=== PATIENT | female | born 1970 | race African-American/Black ===

== ENCOUNTER → 2018-10-04 | Outpatient (CLI) | payer OTHER ==
[2015-07-30 19:57] VITALS: BP 134/80
[~2018-10-04] MED LIST: ACET325T9 PO; CYCL10TA2 PO; HYDR-2765 PO; IBUP-1060 PO; IOHEXOL 180 MG/ML 10 ML VIAL. ONE; MULT1TAB52 PO; SENN1TAB71 PO; TRAM-48 PO; methylPREDNISolone ACETATE 40 MG/ML VIAL. ONE; methylPREDNISolone ACETATE 80 MG/ML VIAL. ONE
--- NOTE | 2018-10-05 15:23 | PAIN ---
DATE OF SERVICE: 10/04/2018 INITIAL CONSULTATION FOR PAIN CLINIC CHIEF COMPLAINT: Neck and right upper extremity pain. HISTORY OF PRESENT ILLNESS: This is a 48-year-old female who presents with history of pain base of neck and right shoulder and upper extremity since about one month ago. The patient reports no specific injury or action that she is aware of. The pain came up over time, has been getting worse. Since the pain began, the patient reports it is radiating to the right hand with numbness and tingling in the thumb and first finger, becoming more constant and numb. She has been having difficulty with dropping items. Fine motor movements such as buttoning a button on a garment, also picking up small objects and lifting items, repetitive motion with the right hand, even raising her hand up above her head is becoming more tender and difficult with the shoulder and arm as well as reaching posteriorly while she is putting on sleeve of a shirt or jacket. The patient reports the pain is constant, sharp, shooting, now radiating with numbness and tingling in the hand, burning and aching as well in the base of the neck. The patient reports it awakens her from sleep about 3-4 times a night, does not affect her bowel or bladder control or ability to walk. She has had physical therapy, also chiropractic treatments and does exercise currently with stretching as well without significant improvement. The patient is taking Flexeril, Ultram, hydrocodone, ibuprofen. Flexeril is the only one that helped her significantly. The others helped only very minimally. The patient did have MRI scan of the cervical spine showing multilevel disk degenerative change and spondylosis, degenerative changes most pronounced at C5-C6 level with probable small left paracentral disk herniation versus disk osteophyte complex at that level. The patient reports her disability rating from 0-10, 10 being the worst, is a 7 with family and home responsibilities, social activities, sexual behavior, self-care; 9 with recreation and occupation; and 6 with life support activities. The patient reports no symptoms in the left upper extremity, but significant fatigability with the right arm with any repetitive motions or any activity at all. PAST MEDICAL HISTORY: Significant for hearing loss in the left ear, history of seizures with a shunt placed at age 22. PREVIOUS SURGERY: Include x 4, [employer] shunt and left bunionectomy, also breast augmentation in 2009. CURRENT MEDICATIONS: Include multivitamins, stool softener, hydrocodone, Tylenol, ibuprofen, tramadol, and cyclobenzaprine. ALLERGIES: THE PATIENT IS ALLERGIC TO COCONUT, WHICH CAUSES HIVE. No medical allergies known. FAMILY HISTORY: Significant for no major medical problems or conditions that she is aware of. SOCIAL HISTORY: The patient does not smoke, drinks alcohol about 1 glass of wine twice a month on average. Does not use any illegal, illicit or recreational drugs. She is , lives with her spouse, has 3 children living at home and lives locally in [place]. REVIEW OF SYSTEMS: The patient's review of systems is positive for those items mentioned in history of present illness. All systems reviewed and otherwise negative. It is complete, full and well documented on the patient's chart. PHYSICAL EXAMINATION: VITAL SIGNS: Today, the patient's blood pressure is 131/84, pulse 85, respirations 16, temperature 97.8 degrees Fahrenheit, height is 5 feet 6-1/2 inches and weight is 139 pounds. GENERAL: The patient is awake, alert, oriented, appropriate, very pleasant demeanor. HEENT: Shows normocephalic, atraumatic. Extraocular movements are intact and symmetrical. Oral cavity: Mucous membranes moist and pink. Dentition is intact. NECK: Anterior throat supple without palpable lymphadenopathy noted. Swallow reflex is symmetrical. CHEST: Shows normal on inspection. Breath sounds are clear to auscultation bilaterally. HEART: Shows S1, S2 clear. No murmurs auscultated. ABDOMEN: Soft, nontender, nondistended. No palpable organomegaly is noted. No rebound or guarding demonstrated. BACK: Shows spine grossly in the midline. Normal appearing thoracic kyphosis and lumbar lordotic curvature. Cervical paraspinous musculature shows symmetrical on inspection. With palpation shows some moderate tenderness even with light to moderate palpation in the middle and lower distribution of the paraspinous muscles, more on the right than the left, but without atrophy or hypertrophy. No trigger points, no radiation of pain. The patient shows good rotational motion, somewhat guarded with far lateral rotation greater than 45 degrees to the right, but without difficulty to the left. Extension and flexion performed fully without significant pain reported. EXTREMITIES: The patient's upper extremities show deep tendon reflexes at 2+ in the biceps and triceps tendons. Motor exam is approximately 4 on a scale of 5 on the right and 5/5 on the left with bicep and tricep flexion as well as service captain strength. Peripheral pulses are 2+ radial distribution. No peripheral edema is noted bilaterally. Upper extremities are warm and dry to touch, equal in color and appearance. Shoulder shrug is strong and intact without loss of strength on resistance as is abduction of shoulder at 90 degrees without loss of strength, but with significant pain in the base of the neck and right shoulder into the trapezius with both these maneuvers on the right only. SKIN: Shows warm and dry, good turgor. No edema. No sores, rashes or bruising throughout. IMPRESSION: This is a 48-year-old female with: 1. Approximately 1 month history of pain in the base of the neck, right upper extremity in a radicular fashion. 2. MRI scan of cervical spine as noted. 3. History of seizures with [employer] shunt in the past. PLAN: Options were discussed with the patient including conservative medical management, physical therapy, interventional techniques and she would like to pursue interventional techniques as she is doing physical therapies already and exercises stretching on her own. We discussed a cervical epidural steroid injection using description as well as anatomical models to describe the procedure. Risks were then discussed including, but not limited to bleeding, infection, possibility of epidural hematoma, subsequent neurological compromise, dural puncture, headaches, spinal cord and/or nerve damage, side effects of steroid medication and poor results regarding pain control. The patient understands and wished to proceed. The patient will return to the clinic in approximately 2 weeks for followup, was counseled on return appointment, activity level and side effects to be aware of. DIAGNOSES: Cervical radiculopathy with cervical degenerative disk disease, cervical spinal stenosis and herniated disk. PROCEDURE: Cervical epidural steroid injection, translaminar approach C5-C6 level using C-arm fluoroscopic guidance under sterile prep and drape using local anesthetic. MEDICATION INJECTED: A total of 120 mg Depo-Medrol plus 5 mL of preservative-free normal saline and 2 mL of Isovue for contrast. CONDITION AT DISCHARGE: Stable. The patient tolerated the procedure well, had no complications. GER LUI MD DR: HARSHAL/deirdre JOB#: [id number] / [id number] LONNIE Velasquez MD
== END | disposition home or self-care (01) ==
LOC: PNCL 09:58
PROVIDERS: ATTEND Anesthesiology
DX: M50.122 Cervical disc disorder at C5-C6 level with radiculopathy (principal); M48.02 Spinal stenosis, cervical region; H91.92 Unspecified hearing loss, left ear; Z98.890 Other specified postprocedural states; Z79.899 Other long term (current) drug therapy; Z91.018 Allergy to other foods; Z72.89 Other problems related to lifestyle
CPT/HCPCS: 62321; J1030; J1040; Q9965

== ENCOUNTER → 2018-10-18 | Outpatient (CLI) | payer OTHER ==
[2015-07-30 19:57] VITALS: BP 134/80
[~2018-10-18] MED LIST changes: -IOHEXOL 180 MG/ML 10 ML VIAL. ONE; -methylPREDNISolone ACETATE 40 MG/ML VIAL. ONE; -methylPREDNISolone ACETATE 80 MG/ML VIAL. ONE
--- NOTE | 2018-10-19 02:03 | PAIN ---
DATE OF SERVICE: 10/18/2018 PROGRESS NOTE FOR PAIN CLINIC DIAGNOSES: Cervical radiculopathy with cervical degenerative disk disease, cervical spinal stenosis and cervical herniated disk. HISTORY OF PRESENT ILLNESS: The patient is a 48-year-old female who returns for followup status post cervical epidural steroid injection x 1. The patient reports about 75% initially over the first 2 weeks, now down to about 50% overall improved, with pain in the neck and right upper extremity. The patient reports he has been increasing activity with greater ease and comfort, working better with using a computer with much greater ease as well. The patient reports still some significant pain which is returning now over the past several days in the base of the neck and the right arm, into the posterior deltoid, posterior upper arm, elbow, having some numbness and tingling in the hand and the right forearm, especially the index finger on the right hand. The patient reports that his pain in the neck and the arm is sharp, tingling, burning, cramping at times, on and off in intensity. Generally, it does not awaken her from sleep, but does occasionally. The patient reports she was increasing her activity at work, especially in household activities and sleeping better, but it took about 2 days for the pain to decrease, but then it was decreasing significantly. The patient reports no new motor or sensory deficits, no new changes. Again, still some pain radiating to the right upper extremity as it was previously, but again significantly improved. PHYSICAL EXAMINATION: VITAL SIGNS: The patient's blood pressure 134/90, pulse 96, respirations 20 and temperature 98.1 degrees Fahrenheit. Height is 5 feet 6-1/2 inches and weight is 143 pounds. GENERAL: The patient is awake, alert, oriented and appropriate. She has a very pleasant demeanor. HEENT EXAMINATION: Shows normocephalic, atraumatic. Extraocular muscles are intact and symmetrical. Oral cavity, mucous membranes are moist and pink. Dentition is intact. NECK: Shows anterior throat supple, without palpable lymphadenopathy noted. Swallow reflex is symmetrical. CHEST: Shows normal on inspection. Breath sounds are clear to auscultation bilaterally. HEART: Shows S1, S2 clear. No murmurs auscultated. ABDOMEN: Soft, nontender and nondistended. No palpable organomegaly is noted. No rebound or guarding demonstrated. BACK: Shows spine grossly in the midline. Normal-appearing cervical lordotic curvature and thoracic kyphotic curvature. Cervical paraspinous muscle shows symmetrical on inspection. On palpation, there is some moderate tenderness, more in the right than the left in the inferior cervical paraspinous musculature as well as the superior medial and lateral trapezius, but without specific trigger points or radiation of pain. The patient has good rotational motion of the cervical spine, both laterally, greater than 45 degrees, closer to 90 degrees as well as full extension, full forward flexion without significant increase in pain. EXTREMITIES: The patient's upper extremities show deep tendon reflexes 2+ in the biceps and triceps tendons. Motor exam is approximately 4 on a scale of 5 with right ramp supervisor strength and 5/5 on the left. Bicep and tricep flexion is 5/5 and equal bilaterally. Peripheral pulses are 2+ radial distribution. No peripheral edema is noted. Shoulder shrug is strong and intact, without loss of strength on resistance bilaterally. Options were discussed with the patient. The patient's old chart was reviewed as was her current medication regimen updated. Current review of systems updated today as well. We will preauthorize the patient for a second cervical epidural steroid injection as she did very well with the first injection, still with radicular pain returning in the C5-C6 dermatomal distribution on the right. We will plan on C5-C6 translaminar cervical epidural steroid injection on return. In the meantime, we will try Medrol Dosepak. The patient was given instructions as well as side effects to be aware of with the medication, and we will follow up in approximately one week to plan on cervical epidural steroid injection at that time. GER LUI MD DR: HARSHAL/deirder JOB#: [id number] / [id number]
== END | disposition home or self-care (01) ==
LOC: PNCL 10:06
PROVIDERS: ATTEND Anesthesiology
DX: M50.10 Cervical disc disorder with radiculopathy, unspecified cervical region (principal); M48.02 Spinal stenosis, cervical region
CPT/HCPCS: G0463

== ENCOUNTER → 2021-10-04 | Outpatient (CLI) | payer OTHER ==
[2015-07-30 19:57] VITALS: BP 134/80
[~2021-10-04] MED LIST changes: +CYCL10TA19 PO; -CYCL10TA2 PO; +MULT-445 PO; -MULT1TAB52 PO
--- NOTE | 2021-10-04 15:03 | KCIC ---
EXAMINATION: US PELVIS COMPLETE, 10/04/2021 8:17 AM CLINICAL INDICATION: Pelvic pain, fibroids, recent heavy vaginal bleeding TECHNIQUE: Grayscale, color and spectral Doppler ultrasound images of the pelvis via none approach. COMPARISON: Pelvic ultrasound 02/26/2015 FINDINGS: The uterus measures 8.5 x 7.1 x 6.2 cm. The endometrial stripe measures 9 mm in thickness. There appe ars to be a large fibroid at the fundus measuring 10.2 x 9.5 x 6.2 cm. A fibroid in the lower anterio r uterine wall measures 5.9 x 6.2 x 4.7 cm. These are normal evaluated due to the size of the masses. The right ovary measures 2.9 x 2.7 x 1.7 cm. The left ovary measures 4.2 x 4.4 x 2.0 cm. Normal ovari an blood flow bilaterally. There is a anechoic simple cyst in left ovary measuring 3.5 x 3.1 x 1.5 cm . No adnexal mass or free fluid. IMPRESSION: 1. There appear to be 2 large fibroids in the uterus, the largest at the fundus measuring 10 cm. This is difficult to fully evaluate by ultrasound given the size. MRI could be obtained if further evalua tion is indicated. This is new or significantly enlarged from ultrasound 02/26/2015. 2. Endometrial stripe measuring 9 mm. If the patient is premenopausal, this is within normal limits. If the patient is postmenopausal, this is abnormally thickened. 3. Simple left ovarian cyst. Electronically signed by: Fe Hilton MD (10/04/2021 3:01 PM) [id number]
== END ==
LOC: KCIC US 08:00
PROVIDERS: ATTEND Obstetrics & Gynecology
DX: D25.9 Leiomyoma of uterus, unspecified (principal); N83.202 Unspecified ovarian cyst, left side
CPT/HCPCS: 76856